=== PATIENT | female | born 1955 | race Caucasian/White ===

== ENCOUNTER 2019-08-19 10:53 | Day surgery (SDC) | payer MEDICARE, MEDICAID ==
[~2019-08-19] VITALS: Ht 161.3 cm; Wt 119.4 kg
[~2019-08-19 10:53] MED LIST: ASCO125T PO; BETA300T PO; CHOL1POW PO; CHOL500015 PO; COD1CAPS6 PO; ELECTROLYTE PO; FLUT1AER INH; MAGN400C3 PO; NUTRITIONAL YEAST PO; THIA100T27 PO; TIZA4CAP PO; ZINC50TA44 PO; [UNRECOGNIZED DRUG - OTHER] PO; [UNRECOGNIZED DRUG - OTHER] PO; [UNRECOGNIZED DRUG - OTHER] PO
[2019-08-19] MEDS ORDERED: LACTATED RINGERS 1,000 ML IV SCH (11:33)
[2019-08-19 11:37] VITALS: BP 134/86
[2019-08-19] MEDS ORDERED: MIDAZOLAM 1 MG/ML, 2ML ONE (13:45)
[2019-08-19] MEDS ORDERED: FENTANYL PF 100 MCG/2ML ONE (13:45)
[2019-08-19] MEDS ORDERED: OXYcodone 5 MG/5 ML ORAL.SOL UDC PO PRN (14:30)
[2019-08-19] MEDS ORDERED: HALOPERIDOL 5 MG/ML IV PRN (14:30)
[2019-08-19] MEDS ORDERED: ACETAMINOPHEN 325 MG TABLET PO PRN (14:30)
[2019-08-19] MEDS ORDERED: HYDROmorphone 2 MG/ML, 1ML IVPush PRN (14:30)
[2019-08-19] MEDS ORDERED: hydrALAzine 20 MG/ML, 1ML IV PRN (14:30)
[2019-08-19] MEDS ORDERED: FENTANYL PF 100 MCG/2ML IV PRN (14:30)
[2019-08-19] MEDS ORDERED: MEPERIDINE/PF 25MG/ML,1ML IVPush PRN (14:30)
[2019-08-19] MEDS ORDERED: ONDANSETRON 2MG/ML, 2ML ONE (15:51)
[2019-08-19] MEDS ORDERED: PROPOFOL 10 MG/ML, 50ML ONE (15:51)
== END 2019-08-19 16:20 | disposition home or self-care (01) ==
LOC: OUT 10:53
PROVIDERS: ATTEND Internal Medicine Gastroenterology
DX: R13.14 Dysphagia, pharyngoesophageal phase (principal); K31.7 Polyp of stomach and duodenum; J44.9 Chronic obstructive pulmonary disease, unspecified; E66.01 Morbid (severe) obesity due to excess calories; Z68.42 Body mass index [BMI] 45.0-49.9, adult; Z88.8 Allergy status to other drugs, medicaments and biological substances; Z91.040 Latex allergy status
CPT/HCPCS: 00731; 43239; 43453; 88305; J2250; J2405; J2704; J3010; J7120